=== PATIENT | male | born 1975 | race Caucasian/White ===

== ENCOUNTER 2018-02-11 09:07 | Emergency (ER) | payer SELFPAY ==
[~2018-02-11] VITALS: Ht 162.6 cm; Wt 81.8 kg
[2018-02-11] MEDS ORDERED: BACITRACIN 0.9 GM PACKET OINTMENT TP ONE (10:15)
[2018-02-11] MEDS ORDERED: IBUPROFEN 600 MG TABLET PO ONE (10:15)
[2018-02-11 11:13] VITALS: BP 136/78
== END 2018-02-11 11:15 | disposition home or self-care (01) ==
LOC: EMS 09:08
DX: S90.821A Blister (nonthermal), right foot, initial encounter (principal); S90.822A Blister (nonthermal), left foot, initial encounter; F17.210 Nicotine dependence, cigarettes, uncomplicated; Z88.5 Allergy status to narcotic agent; X50.3XXA Overexertion from repetitive movements, initial encounter; Y93.01 Activity, walking, marching and hiking; Y92.89 Other specified places as the place of occurrence of the external cause; Y99.8 Other external cause status